=== PATIENT | female | born 1990 | race Caucasian/White ===

== ENCOUNTER 2017-02-18 22:16 | Inpatient (IN) | payer OTHER ==
[~2017-02-18] VITALS: Ht 157.5 cm; Wt 65.0 kg
[~2017-02-18 22:16] MED LIST: BIRTH CONTROL PILLS
[2017-02-18] MEDS ORDERED: LACTATED RINGER'S 1,000 ML IV SCH (22:32)
[2017-02-18] MEDS ORDERED: AMPICILLIN 2 GM/NS (PMX) 100 ML ONE (22:37)
[2017-02-18] MEDS ORDERED: MISOPROSTOL 200 MCG TAB PR PRN ×2 (23:00→23:30)
[2017-02-18] MEDS ORDERED: LACTATED RINGER'S 1,000 ML IV PRN (23:00)
[2017-02-18] MEDS ORDERED: IBUPROFEN 600 MG TAB PO PRN (23:00)
[2017-02-18] MEDS ORDERED: OXYTOCIN 30 UNITS/LR 500 ML IV PRN ×2 (23:00→23:30)
[2017-02-18] MEDS ORDERED: OXYTOCIN 30 UNITS/LR 500 ML IV SCH ×3 (23:00→23:13)
[2017-02-18] MEDS ORDERED: BUTORPHANOL 2 MG INJ IV PRN (23:00)
[2017-02-18] MEDS ORDERED: CARBOPROST 250 MCG INJ IM PRN ×2 (23:00→23:30)
[2017-02-18] MEDS ORDERED: AMPICILLIN 2 GM/NS (PMX) 100 ML IV ONE (23:00)
[2017-02-18] MEDS ORDERED: METHYLERGONOVINE 0.2 MG INJ IM PRN ×2 (23:00→23:30)
[2017-02-18] MEDS ORDERED: LIDOCAINE 1% (MPF) 30 ML INJ INJ PRN (23:00)
[2017-02-18] MEDS ORDERED: LACTATED RINGER'S 1,000 ML IV* SCH (23:13)
--- NOTE | 2017-02-18 23:21 | HP ---
Date/Time of Note Date/Time of Note DATE: 02/18/17 TIME: 23:17 OB - History Hx of Present Free Text/Dictation 27 y.o. A1 with an IUP at 39w 2d camein by ambulance from home as her contractions were so painful and was 6 cm on admit and rapidly progressed to complete dilation. Chief Complaint: Active labor Estimated Due Date: Feb 23, 2017 : 5 Para: 3 Spontaneous : 1 Care: Good Care Ultrasounds: Normal mid trimester US Obstetrical Complications: None Medical Complications: None Past Family/Social History * Past Medical, Surgical, Family and Obstetric Histories reviewed from chart. Blood Type: O+ Rubella: immune RPR/VDRL: Negative GBS Status: Negative HBsAG: Negative OB Admission Exam Vital Signs Vital Signs BP 120/86 Physical Exam HEENT: WNL Heart: Rhythm Normal Lungs: Clear Abdomen: WNL Extremities: Normal Reflexes: Normal Cervical Dilatation: 6cm Effacement: 100% Station: -2 Membranes: Intact Amniotic Fluid: Clear Heart Rate: 140's Accelerations: Accelerations Present Decelerations: No Decelerations Varibility: Moderate Contractions on Admission: < 5 Minutes Apart OB Assessment/Plan Reason for admission: active labor Plan: Expectant Management JUAN JOSE MANZANO MD Feb 18, 2017 23:21
--- NOTE | 2017-02-18 23:23 | LDN ---
Date/Time of Note Date/Time of Note DATE: 02/18/17 TIME: 23:21 Delivery Summary of a viable baby boy weighing 3665 grams, or 8# 1 oz, 20" long, and with Apgars of 9/9. Weeks of Gestation 39w 2d Placenta Delivered: Spontaneously Meconium: none Episiotomy: No Perineal laceration: 0 Anesthesia type: None Estimated blood loss: 200 Sponge & Needle done & correct: Yes All needle counts correct: Yes Any foreign bodies felt in the: No (vagina) Problems: Infant Delivery Information Sex Infant Sex: male Apgars 1 Minute: 9 5 Minute: 9 Suctioning Nose & mouth suctioned at jimbo: No Delee suction performed: No Umbilical Cord Umbilical cord with: 3 Vessels Cord presentations: nuchal cord Nuchal cord present X: 1 Cord Blood was obtained: Yes Mother & Baby Disposition Disposition Mom & Baby to Maternity; Good: Yes Baby to NICU: No JUAN JOSE MANZANO MD Feb 18, 2017 23:23
[2017-02-18 23:27] VITALS: BP 126/70; PULSE 81; RESP 18
[2017-02-18] MEDS ORDERED: LANOLIN 7 GM TUBE TOP PRN (23:30)
[2017-02-18] MEDS ORDERED: HYDROCODONE/APAP (5/325) TAB PO PRN (23:30)
[2017-02-18 23:42] VITALS: BP 112/71; PULSE 78; RESP 18
--- NOTE | 2017-02-18 23:43 | TRIAGE ---
OB Triage Datetime Report Generated by CPN: 02/18/2017 23:43 Datetime: 02/18/2017 22:51 Membranes Ruptured Date/Time: 02/18/2017 22:56 Membranes Rupture Method: Spontaneous Amniotic Fluid Color: Light Meconium Amniotic Fluid Amount: Moderate Amniotic Fluid Odor: None Datetime: 02/18/2017 22:49 Stage of : Labor Vaginal Exam Dilatation (cms): 10.0 Effacement (%): 100 Station: 0 Exam By: BLAINE KILPATRICK Membrane Status: Bulging Datetime: 02/18/2017 22:37 Stage of : Labor Datetime: 02/18/2017 22:36 EGA: 39.2 Datetime: 02/18/2017 22:20 Vaginal Exam Dilatation (cms): 6.0 Effacement (%): 100 Station: -1 Exam By: Rufus Membrane Status: Intact Vaginal Bleeding: Scant Cervix, Consistency: Soft Cervix, Position: Midposition Presentation 'A': Cephalic Datetime: 02/18/2017 22:10 Time of Arrival: 02/18/2017 22:10 Arrived By: Ambulance Arrived From: Home Chief Complaint: PT C/O ABDOMEN PAIN Movement: Present Contractions: Regular Time Contractions Began: 02/18/2017 19:00 Rupture of Membranes: Denies Vaginal Bleeding: None Vaginal Discharge: Denies Recent Sexual Intercouse: Denies Abdominal Trauma: Not Applicable Patient Complaints: Contractions Time Provider Notified: 02/18/2017 22:24 Provider Notified: DR DEGROOT Initial Plan: TOCO AND EFM APPLY, SVE, KAYLEEN FLYNN
[2017-02-18 23:57] VITALS: BP 135/80; RESP 18
[2017-02-18 23:57] LABS: BARBITURATES NEGATIVE (NEGATIVE); BENZODIAZEPINES NEGATIVE (NEGATIVE); CANNABINOIDS NEGATIVE (NEGATIVE); COCAINE NEGATIVE (NEGATIVE); OPIATES NEGATIVE (NEGATIVE)
[2017-02-19] VITALS (7 sets, daily range): BP systolic 105–122; BP diastolic 56–77; PULSE 73–89; RESP 18–21; Ht 157.5 cm; Wt 65.0 kg
[2017-02-19] MEDS: IBUPROFEN 600 MG TAB PO SCH ×5 (00:01→23:38)
[2017-02-19 00:20] LABS: BASOPHILS % 0.2 % (0.0-2.0); EOSINOPHILS # 0.1 10^3/ul (0.0-0.5); EOSINOPHILS % 0.7 % (0.0-7.0); HEMATOCRIT 31.3 % (37.0-47.0); HEMOGLOBIN 9.6 g/dl (12.0-16.0); LYMPHOCYTES # 1.4 10^3/ul (0.8-2.9); LYMPHOCYTES % 11.2 % (15.0-51.0); MEAN CORPUSCULAR HEMOGLOBIN 25.3 pg (29.0-33.0); MEAN CORPUSCULAR HGB CONC 30.7 g/dl (32.0-37.0); MEAN CORPUSCULAR VOLUME 82.6 fl (82.0-101.0); MEAN PLATELET VOLUME 10.3 fl (7.4-10.4); MONOCYTE # 0.7 10^3/ul (0.3-0.9); MONOCYTES % 5.7 % (0.0-11.0); NEUTROPHIL # 10.5 10^3/ul (1.6-7.5); NEUTROPHILS % 81.5 % (39.0-77.0); PLATELET COUNT 188 10^3/UL (140-415); RED BLOOD COUNT 3.79 10^6/ul (4.20-5.40); WHITE BLOOD COUNT 12.9 10^3/ul (4.8-10.8)
[2017-02-19 00:49] LABS: INR 0.9; PARTIAL THROMBOPLASTIN TIME 24.7 Sec (25.0-35.0); PROTIME 12.1 Sec (12.2-14.2); PT RATIO 0.9
[2017-02-19] MEDS ORDERED: AMPICILLIN 1 GM/NS (PMX) 50 ML IV SCH (03:00)
[2017-02-19 09:15] LABS: BASOPHILS % 0.1 % (0.0-2.0); EOSINOPHILS # 0.1 10^3/ul (0.0-0.5); EOSINOPHILS % 0.8 % (0.0-7.0); HEMATOCRIT 29.7 % (37.0-47.0); HEMOGLOBIN 9.6 g/dl (12.0-16.0); LYMPHOCYTES # 1.6 10^3/ul (0.8-2.9); LYMPHOCYTES % 12.5 % (15.0-51.0); MEAN CORPUSCULAR HEMOGLOBIN 26.4 pg (29.0-33.0); MEAN CORPUSCULAR HGB CONC 32.3 g/dl (32.0-37.0); MEAN CORPUSCULAR VOLUME 81.6 fl (82.0-101.0); MEAN PLATELET VOLUME 10.4 fl (7.4-10.4); MONOCYTE # 0.7 10^3/ul (0.3-0.9); MONOCYTES % 5.5 % (0.0-11.0); NEUTROPHIL # 10.2 10^3/ul (1.6-7.5); NEUTROPHILS % 80.3 % (39.0-77.0); PLATELET COUNT 187 10^3/UL (140-415); RED BLOOD COUNT 3.64 10^6/ul (4.20-5.40); RED CELL DISTRIBUTION WIDTH 19.7 % (11.5-14.5); WHITE BLOOD COUNT 12.7 10^3/ul (4.8-10.8)
[2017-02-19] MEDS ORDERED: INFLUENZA VIRUS VACCINE 0.5 ML (DISPENSING) IM* ONE (10:25)
--- NOTE | 2017-02-19 20:17 | DS ---
Date/Time of Note Date/Time of Note Home next day DATE: 02/19/17 TIME: 20:16 Obstetrical Discharge Record Final Diagnosis Final Diagnosis: Term delivered Other Final Diagnosis This post vaginal delivery Vaginal Delivery Obstetrical Delivery: Spontaneous Condition on Discharge Physical Assessment Last Vitals: See nurse's note Voiding: Yes Bowel Movement: Yes Breast: Soft, non-tender, Filling Fundus: Firm Abdomen and Incision: Soft bowel sounds present Episiotomy: Not applicable Calf Tenderness: No Patient Condition: Good FARHANA COLES MD Feb 19, 2017 20:17
[2017-02-19] MEDS ORDERED: IBUP-1542 PO (20:18)
--- NOTE | 2017-02-19 20:18 | PD.PPDC ---
[employer] Discharge Instruction Provider Information Physician Information 27-year-old female had vaginal delivery Diagnosis Final Diagnosis: Status post vaginal delivery Condition Patient Condition: Good Diet Diet: Resume Regular Diet Activity/Restrictions Activity: Normal Activity May Shower Restrictions: Nothing in the Vagina Return to Work or School: Apr 07, 2017 Follow-up Follow-up with Physician: 4, Week/Weeks (Clinic) Return to clinic for OB Instructions: Breast Tenderness Depression Comment: Pelvic rest 6 weeks FARHANA COLES MD Feb 19, 2017 20:18
[2017-02-20 04:10] VITALS: BP 101/58; PULSE 72; RESP 20
[2017-02-20] MEDS: IBUPROFEN 600 MG TAB PO SCH ×3 (05:28→17:27)
[2017-02-20 07:30] VITALS: BP 107/65; PULSE 82; RESP 19
[2017-02-20] MEDS ORDERED: DIPHTH/TET/ACEL PERTUSS (ADULT) 0.5 ML VIAL IM* ONE (09:00)
[2017-02-20 10:20] LABS: BASOPHILS % 0.5 % (0.0-2.0); EOSINOPHILS # 0.2 10^3/ul (0.0-0.5); EOSINOPHILS % 2.3 % (0.0-7.0); HEMATOCRIT 32.1 % (37.0-47.0); HEMOGLOBIN 10.1 g/dl (12.0-16.0); LYMPHOCYTES # 1.6 10^3/ul (0.8-2.9); LYMPHOCYTES % 19.5 % (15.0-51.0); MEAN CORPUSCULAR HGB CONC 31.5 g/dl (32.0-37.0); MEAN CORPUSCULAR VOLUME 82.5 fl (82.0-101.0); MEAN PLATELET VOLUME 10.2 fl (7.4-10.4); MONOCYTE # 0.5 10^3/ul (0.3-0.9); MONOCYTES % 5.9 % (0.0-11.0); NEUTROPHIL # 5.8 10^3/ul (1.6-7.5); NEUTROPHILS % 70.8 % (39.0-77.0); PLATELET COUNT 215 10^3/UL (140-415); RED BLOOD COUNT 3.89 10^6/ul (4.20-5.40); RED CELL DISTRIBUTION WIDTH 20.2 % (11.5-14.5); WHITE BLOOD COUNT 8.2 10^3/ul (4.8-10.8)
[2017-02-20 16:00] VITALS: BP 105/63; PULSE 80; RESP 19
[2017-02-21] MEDS ORDERED: INFLUENZA VIRUS VACCINE 0.5 ML (DISPENSING) IM* ONE (09:00)
== END 2017-02-20 18:38 | disposition home or self-care (01) | DRG 775 ==
LOC: OBT 22:16 → L-D 22:18 → OBT 22:24 → L-D 22:24 → PP1 02-19 01:12
PROVIDERS: ADMIT Obstetrics & Gynecology; ATTEND Obstetrics & Gynecology
PROC: 10E0XZZ Delivery of Products of Conception, External Approach (ICD-10-PCS; principal; 2017-02-18)
DX: O80 Encounter for full-term uncomplicated delivery (principal); Z37.0 Single live birth; Z3A.39 39 weeks gestation of pregnancy
CPT/HCPCS: 80307; 85025; 85610; 85730; 86592; 86850; 86870; 86885; 86900; 86901; 87340; 90686; 90715; 99464; G0463; J0290; J2590; J2790; J7120